=== PATIENT | female | born 1970 | race Caucasian/White ===

== ENCOUNTER 2016-04-30 13:58 | Emergency (ER) | payer OTHER ==
[~2016-04-30] VITALS: Ht 182.9 cm; Wt 127.0 kg
[~2016-04-30 13:58] MED LIST: ESTR1TAB PO; LEVO150T7 PO; LORA10TA2 PO; MIRA3350 PO; MOTR200T44 PO; NORCOTAB PO; OMEP10CASR PO; OMEP40CA2 PO; PARO10SS PO; PARO20TA2 PO; PROA1AER IN; SING10TA32 PO; VITA200016 PO
[2016-04-30] MEDS ORDERED: RANI150T (14:21)
[2016-04-30] MEDS ORDERED: ASPIRIN 81 MG CHEW TABLET PO ONE (15:00)
[2016-04-30] MEDS ORDERED: PANTOPRAZOLE 40MG INJ (PROTONIX) (C9113) IV ONE (15:00)
[2016-04-30] MEDS ORDERED: MORPHINE 4 MG/ML 1ML SYRINGE IV PRN (15:00)
[2016-04-30 15:02] LABS: BASO % 0.4 % (0.0-1.0); EOS # 0.1 K/mm3 (0.0-0.50); EOS % 2.4 % (0.0-3.0); LARGE UNSTAINED CELL # 0.1 K/mm3 (0.0-0.4); LARGE UNSTAINED CELL % 2.3 % (0.0-4.0); LYMPH % 43.3 % (24.0-44.0); MEAN CORPUSCULAR HEMOGLOBIN 27.6 pg (27.0-33.0); MEAN CORPUSCULAR HGB CONC 32.3 g/dl (32.0-36.5); MEAN CORPUSCULAR VOLUME 85.3 fl (80.0-96.0); MONO # 0.2 K/mm3 (0.0-0.8); MONO % 4.9 % (0.0-5.0); NEUTROPHILS # 2.2 K/mm3 (1.8-7.7); NEUTROPHILS % 46.8 % (36.0-66.0); PLATELET COUNT, AUTOMATED 223 k/mm3 (150-450); RED CELL DISTRIBUTION WIDTH 13.5 % (11.5-14.5); WHITE BLOOD COUNT 4.7 K/mm3 (4.0-10.0)
[2016-04-30 15:09] LABS: ANION GAP 9 MEQ/L (8-16); BLOOD UREA NITROGEN 13 MG/DL (7-18); CALCIUM LEVEL 8.8 MG/DL (8.5-10.1); CARBON DIOXIDE LEVEL 28 MEQ/L (21-32); CHLORIDE LEVEL 107 MEQ/L (98-107); CREATININE FOR GFR 0.74 MG/DL (0.55-1.02); GLOMERULAR FILTRATION RATE > 60.0 (>58); GLUCOSE, FASTING 101 MG/DL (70-105); POTASSIUM SERUM 3.8 MEQ/L (3.5-5.1); SODIUM LEVEL 144 MEQ/L (136-145)
[2016-04-30] MEDS ORDERED: KETOROLAC 30 MG/ML VIAL (J1885) IV ONE (15:45)
[2016-04-30] MEDS ORDERED: IBUP600T26 PO (15:55)
[2016-04-30 16:04] VITALS: BP 121/67
--- NOTE | 2016-04-30 17:14 | REP ---
Chest x-ray: Two views: History: Chest pain. Findings: The lungs are well inflated and free of infiltrate. There is a stable and fairly densely calcified 1.5 cm granuloma in the left lung apex superimposed on the medial head of the clavicle on the left side on the frontal view and just in front of the upper thoracic spine on the lateral radiograph. It is unchanged from prior chest x-ray and is visible on chest CT study 01/2015. Pleural angles are sharp. EKG monitoring electrodes are noted. Pulmonary vasculature is not increased. No significant bony abnormality. Impression: No active disease. 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 Signed by Cesar Vásquez MD 04/30/2016 05:46 P
--- NOTE | 2016-05-01 20:15 | ECGEPIP ---
Stationary ECG Study [facility] - ED Test Date: 2016-04-30 Pat Name: MINA FLOWERS Department: Room: - Gender: F Admitted Attorneys: rn : 1970 Requested By: Darrin Baird Order Number: [id number] Reading MD: Ale Boyer Measurements Intervals [place] Rate: 76 P: 8 [place]: 158 QRS: 9 QRSD: 89 T: 25 QT: 402 QTc: 453 Interpretive Statements SINUS RHYTHM LOW QRS VOLTAGE IN PRECORDIAL LEADS DELAYED TR WAVE PROGRESSION PROLONGED QTC NO PRIOR ECG TO COMPARE TO Electronically Signed On 05-01-2016 20:15:18 EST by Ale Boyer
== END 2016-04-30 16:23 | disposition home or self-care (01) ==
LOC: M ED 14:56
DX: M94.0 Chondrocostal junction syndrome [Tietze] (principal); Z87.891 Personal history of nicotine dependence; Z79.899 Other long term (current) drug therapy

== ENCOUNTER → 2016-05-08 | Outpatient (REF) | payer OTHER ==
[~2016-05-08] MED LIST changes: +IBUP600T26 PO; +RANI150T
[2016-05-10 00:08] LABS: Lyme Disease IgG/IgM Antibodie <0.91 ISR (0.00-0.90); Lyme Disease IgM Ab Quantitati <0.80 index (0.00-0.79)
== END ==
LOC: M SFHCPLAZ 10:50
PROVIDERS: ATTEND Nurse Practitioner Adult Health
DX: R53.83 Other fatigue (principal); Z68.41 Body mass index [BMI] 40.0-44.9, adult; E78.1 Pure hyperglyceridemia; E03.9 Hypothyroidism, unspecified

== ENCOUNTER 2017-03-16 06:44 | Emergency (ER) | payer OTHER ==
[2017-03-16] MEDS: IPRATROPIUM 0.5MG/ALBUTEROL 2.5MG INH SOL UD 3ML (DUONEB)(J7620) NEB (07:46)
== END 2017-03-16 09:16 | disposition home or self-care (01) ==
LOC: M ED 06:44
DX: J20.5 Acute bronchitis due to respiratory syncytial virus (principal); E03.9 Hypothyroidism, unspecified; F17.200 Nicotine dependence, unspecified, uncomplicated
CPT/HCPCS: 71046

== ENCOUNTER → 2018-05-21 | Outpatient (REF) | payer OTHER ==
[~2018-05-21] MED LIST changes: +IBUP-1022 PO; -IBUP600T26 PO; +LORA-243 PO; -LORA10TA2 PO; -PARO20TA2 PO; +PARO20TA3 PO; -PROA1AER IN; +PROAAER10 IN; +PROAAER10 INH; +VITA100067 PO
[2018-05-21 12:02] LABS: HEMATOCRIT 40.3 % (36.0-47.0); HEMOGLOBIN 12.8 g/dl (12.0-15.5); MEAN CORPUSCULAR HEMOGLOBIN 27.8 pg (27.0-33.0); MEAN CORPUSCULAR HGB CONC 31.8 g/dl (32.0-36.5); MEAN CORPUSCULAR VOLUME 87.6 fl (80.0-96.0); PLATELET COUNT, AUTOMATED 222 10^3/uL (150-450); WHITE BLOOD COUNT 5.5 10^3/uL (4.0-10.0)
[2018-05-21 12:37] LABS: ALBUMIN 3.7 GM/DL (3.2-5.2); ALT/SGPT 24 U/L (12-78); BILIRUBIN,TOTAL 0.4 MG/DL (0.2-1.0); BLOOD UREA NITROGEN 12 MG/DL (7-18); CARBON DIOXIDE LEVEL 29 MEQ/L (21-32); CHLORIDE LEVEL 109 MEQ/L (98-107); CHOLESTEROL LEVEL 196 MG/DL (<200); CHOLESTEROL RISK RATIO 3.438 (<5); CREATININE FOR GFR 0.62 MG/DL (0.55-1.30); GLOMERULAR FILTRATION RATE > 60.0 (>58); GLUCOSE, FASTING 77 MG/DL (70-100); HDL CHOLESTEROL 57 MG/DL (>40); LDL CHOLESTEROL 114 MG/DL (<100); NON-HDL-C 139 MG/DL; POTASSIUM SERUM 4.5 MEQ/L (3.5-5.1); SODIUM LEVEL 143 MEQ/L (136-145); TOTAL 25(OH) VITAMIN D 36.3 NG/ML (30.0-100.0); TOTAL PROTEIN 6.7 GM/DL (6.4-8.2); TRIGLYCERIDES LEVEL 123 MG/DL (<150)
== END ==
LOC: M SFHCPLAZ 08:38
PROVIDERS: ATTEND Internal Medicine
DX: Z01.818 Encounter for other preprocedural examination (principal); E03.9 Hypothyroidism, unspecified; Z68.41 Body mass index [BMI] 40.0-44.9, adult; E55.9 Vitamin D deficiency, unspecified

== ENCOUNTER 2018-06-27 13:43 | Emergency (ER) | payer OTHER ==
[~2018-06-27] VITALS: Ht 182.9 cm; Wt 131.8 kg
[~2018-06-27 13:43] MED LIST changes: +HYDR-3715 PO; -NORCOTAB PO
[2018-06-27] MEDS ORDERED: ONDANSETRON 4MG/2ML VIAL (J2405) IV STA (13:55)
[2018-06-27] MEDS ORDERED: LORazepam 2 MG/ML VIAL (J2060) IV STA (14:09)
[2018-06-27 14:43] LABS: ABG BASE EXCESS -0.6 (-2.0-2.0); ABG HCO3 22.2 MEQ/L (22.0-26.0); ABG O2 SATURATION 94.4 % (95.0-99.0); ABG PARTIAL PRESSURE O2 67.8 mmHg (75.0-100.0); ABG STANDARD HCO3 23.9 MEQ/L (22.0-26.0); ABG TOTAL CO2 23.1 MEQ/L (22.0-29.0); ABG pH (ARTERIAL) 7.472 UNITS (7.350-7.450)
[2018-06-27 14:55] LABS: BASO % 0.2 % (0.0-1.0); EOS # 0.1 10^3/uL (0.0-0.50); EOS % 0.6 % (0.0-3.0); HEMATOCRIT 37.8 % (36.0-47.0); HEMOGLOBIN 12.5 g/dl (12.0-15.5); LYMPH # 2.6 10^3/uL (1.5-4.5); LYMPH % 31.5 % (24.0-44.0); MEAN CORPUSCULAR HEMOGLOBIN 28.8 pg (27.0-33.0); MEAN CORPUSCULAR HGB CONC 33.1 g/dl (32.0-36.5); MEAN CORPUSCULAR VOLUME 87.1 fl (80.0-96.0); MONO # 0.4 10^3/uL (0.0-0.8); MONO % 4.5 % (0.0-5.0); NEUTROPHILS # 5.1 10^3/uL (1.8-7.7); NEUTROPHILS % 62.8 % (36.0-66.0); PLATELET COUNT, AUTOMATED 216 10^3/uL (150-450); RED BLOOD COUNT 4.34 10^6/uL (4.00-5.40); WHITE BLOOD COUNT 8.2 10^3/uL (4.0-10.0)
[2018-06-27 15:08] LABS: BLOOD UREA NITROGEN 15 MG/DL (7-18); CALCIUM LEVEL 9.2 MG/DL (8.5-10.1); CARBON DIOXIDE LEVEL 24 MEQ/L (21-32); CHLORIDE LEVEL 108 MEQ/L (98-107); CREATININE FOR GFR 0.84 MG/DL (0.55-1.30); GLOMERULAR FILTRATION RATE > 60.0 (>58); GLUCOSE, FASTING 128 MG/DL (70-100); POTASSIUM SERUM 3.7 MEQ/L (3.5-5.1); SODIUM LEVEL 141 MEQ/L (136-145)
[2018-06-27] MEDS ORDERED: MECLIZINE 25 MG TABLET PO ONE (16:15)
[2018-06-27 17:41] VITALS: O2SAT 95
[2018-06-27] MEDS ORDERED: LORazepam 2 MG/ML VIAL (J2060) IV ONE (18:15)
--- NOTE | 2018-06-27 20:11 | REPVR ---
EXAM: MR Head Without Contrast EXAM DATE/TIME: 06/27/2018 5:54 PM CLINICAL HISTORY: 48 years old, female; Signs and symptoms; Malaise or fatigue; Patient HX: Anxiety; Additional info: R/O cerebellar CVA TECHNIQUE: Imaging protocol: MR of the head without contrast. COMPARISON: CT Head without contrast 06/27/2018 4:15 PM FINDINGS: No abnormal restriction of diffusion to indicate acute CVA. Minimal linear focus of vaguely increased diffusion signal, left frontal cortex on image 200 demonstrates no ADC map signal abnormality and no FLAIR or T2 signal abnormality is felt to be an artifact. No evidence of a posterior fossa acute infarct Midline structures and cerebellar tonsillar position appear normal. Ventricles, cisterns and sulci are symmetric and normal for age. No intracranial mass, midline shift or abnormal extra-axial fluid. No acute intracranial hemorrhage or hemosiderin deposition. No abnormal white matter signal on FLAIR and T2 sequences. Optic chiasm and pituitary infundibulum appear normal. Normal vascular flow voids in major intracranial arteries and dural venous sinuses. Paranasal sinuses are clear. Mastoid air cells are normally aerated. Optic globes and orbits are unremarkable. IMPRESSION: Unremarkable noncontrast MRI of the brain. Electronically signed by: Calos Rodriguez On 06/27/2018 20:11:07 PM
--- NOTE | 2018-06-27 21:21 | ECGEPIP ---
Stationary ECG Study [facility] - ED Test Date: 2018-06-27 Pat Name: MINA FLOWERS Department: Room: - Gender: F Director Of Sleep: MAR : 1970 Requested By: RAQUEL Daniel Order Number: [id number] Reading MD: Debbie Parada Measurements Intervals [place] Rate: 78 P: 30 MO: 140 QRS: 0 QRSD: 98 T: 7 QT: 410 QTc: 470 Interpretive Statements SINUS RHYTHM PROLONGED QTC SIMILAR 04/30/16 Electronically Signed On 06-27-2018 21:20:48 EDT by Debbie Parada
[2018-06-27 21:46] VITALS: BP 122/69
--- NOTE | 2018-06-28 07:43 | REP ---
CT BRAIN WITHOUT IV CONTRAST: CT brain performed without IV contrast. Pereira-white differentiation is well maintained. The lateral ventricles are normal in size and position with no midline shift or mass effect. There is no acute intracranial hemorrhage. There is no extra-axial fluid collection. Bone window examination is unremarkable. IMPRESSION: Negative noncontrast CT of the brain. Electronically Signed by Rj Pereira MD 06/28/2018 05:21 P
== END 2018-06-27 21:48 | disposition home or self-care (01) ==
LOC: M ED 13:43 → EDBD 13:43 → M ED 21:48
DX: F16.10 Hallucinogen abuse, uncomplicated (principal); J45.909 Unspecified asthma, uncomplicated; F33.9 Major depressive disorder, recurrent, unspecified; K21.9 Gastro-esophageal reflux disease without esophagitis; E07.9 Disorder of thyroid, unspecified; Z79.899 Other long term (current) drug therapy; Z79.890 Hormone replacement therapy; F17.210 Nicotine dependence, cigarettes, uncomplicated
CPT/HCPCS: 36600; 70450; 70551; 80048; 82803; 85025; 93005; 93041; 96374; 96375; 96376; 99285; J2060; J2405

== ENCOUNTER → 2019-05-03 | Outpatient (REF) | payer OTHER ==
[~2019-05-03] MED LIST changes: -OMEP40CA2 PO; +OMEP40CA97 PO
[2019-05-03 13:35] LABS: INFLUENZA A AMPLIFICATION NEGATIVE (NEGATIVE); INFLUENZA B AMPLIFICATION NEGATIVE (NEGATIVE)
== END ==
LOC: M LAB REF 12:34
PROVIDERS: ATTEND Physician Assistant Medical
DX: J11.1 Influenza due to unidentified influenza virus with other respiratory manifestations (principal)

== ENCOUNTER 2019-07-08 07:24 | Emergency (ER) | payer OTHER ==
[~2019-07-08] VITALS: Ht 180.3 cm; Wt 131.9 kg
[2019-07-08] MEDS ORDERED: LORA-674 PO (07:36)
[2019-07-08] MEDS ORDERED: ULTR50TA8 PO (08:44)
[2019-07-08] MEDS ORDERED: traMADol 50 MG TAB PO ONE (08:45)
[2019-07-08] MEDS ORDERED: ACETAMINOPHEN TAB 650MG DOSE (2X325MG) PO ONE (08:45)
[2019-07-08 08:49] VITALS: BP 140/87
--- NOTE | 2019-07-08 10:09 | REP ---
RIGHT FOOT SERIES: FOUR VIEWS. HISTORY: Right great toe injury. No comparison study. FINDINGS: Four views of the right foot demonstrate a chip fracture at the distal phalanx of the great toe along its lateral aspect at the IP joint. Overall mineralization pattern is normal. No other fractures seen. There is an os navicular and an os peroneum. There is prominent plantar and Achilles calcaneal spurring. IMPRESSION: Nondisplaced avulsion chip fracture distal phalanx great toe at the IP joint along its lateral side. Electronically Signed by Cesar Vásquez MD 07/08/2019 11:25 A
== END 2019-07-08 08:58 | disposition home or self-care (01) ==
LOC: M ED 07:24

== ENCOUNTER → 2020-09-26 | Outpatient (CLI) | payer OTHER ==
[~2020-09-26] MED LIST changes: +ISOVUE-300 61% 50ML VIAL As Ordered ONE; +LORA-674 PO; +OMEP40CA4 PO; -OMEP40CA97 PO; +PROHANCE 279.3MG/ML 5ML VIAL As Ordered ONE; +ULTR50TA8 PO
--- NOTE | 2020-09-26 16:49 | REP ---
INDICATION: SPRAIN OF LEFT WRIST. COMPARISON: Multiple prior radiographs, most recently 07/24/2020. TECHNIQUE: Multiple sequences obtained in the axial, coronal and sagittal planes. Post arthrogram sequences obtained in the axial, coronal and sagittal planes with T1 fat saturation. FINDINGS: Triangular fibrocartilage complex:No evidence of tear.There appears to be a tear of the volar radioulnar ligament, with resultant dorsal subluxation of the distal ulna. Scapholunate and lunatotriquetral ligaments: Intact. Flexor and extensor tendons: Intact. No tenosynovitis. Carpal tunnel region: No significant abnormality. No abnormal signal in median nerve. No ganglion cyst is seen. Joint fluid: There is mild scattered fluid throughout the intercarpal joints. Distal radioulnar joint: No significant fluid present. Bone marrow:There is ulnar minus variance, the ulna is approximately 7 mm shorter than the radius. 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 Multiple subcentimeter cysts are seen throughout the fractured lunate bone. There is no acute bone marrow edema or occult fracture. There is evidence of prior placement of several metallic screws in the distal radius. IMPRESSION: There appears to be a tear of the volar radioulnar ligament with resultant dorsal subluxation of the distal ulna. Ulnar minus variance. 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 No acute fracture is visualized. <Electronically signed by Rj Pereira > 09/26/20 0716
--- NOTE | 2020-09-26 17:17 | REP ---
INDICATION: SPRAIN OF LEFT WRIST. COMPARISON: None. TECHNIQUE: The procedure was performed under the direct supervision of Dr. Pereira. The images were reviewed with Dr. Pereira. The benefits and risks including but not limited to pain infection bleeding and anaphylaxis were explained to the patient and informed consent was obtained. The left radioscaphoid joint space was localized using fluoroscopic guidance. The skin was prepped and draped in a sterile fashion. 1% lidocaine was used as a local anesthetic. Using fluoroscopic guidance a 25 gauge needle was inserted and advanced into the joint. 3 cc of a solution containing 5 cc of Isovue-300 and 5 cc of a solution containing 20 cc of sterile saline and 0.15 cc of ProHance was injected into the joint. Images it obtained during injection show filling of the distal carpal joints. There is no contrast seen in the distal radioulnar joint. The triangular fibrocartilage complex appears intact. The needle was removed and the patient was taken to MRI for postprocedural imaging. The patient tolerated the procedure well and there were no immediate complications. 0.2 minutes of fluoroscopy time was utilized for this procedure. FINDINGS: None IMPRESSION: Fluoro guidance for left wrist MRI arthrogram injection. <Electronically signed by Epi Valentino > 09/26/20 [id number] <Electronically signed by Rj Pereira > 09/26/20 [id number]
== END ==
LOC: M RADPRO 07:37
PROVIDERS: ATTEND Physician Assistant
DX: R93.7 Abnormal findings on diagnostic imaging of other parts of musculoskeletal system (principal); S63.502D Unspecified sprain of left wrist, subsequent encounter
CPT/HCPCS: 25246; 73223; 77002; A9576; Q9967

== ENCOUNTER → 2020-10-12 | Outpatient (CLI) | payer OTHER ==
[~2020-10-12] MED LIST changes: -ISOVUE-300 61% 50ML VIAL As Ordered ONE; -PROHANCE 279.3MG/ML 5ML VIAL As Ordered ONE
[2020-10-12 14:14] LABS: ALBUMIN 3.4 GM/DL (3.2-5.2); ALT/SGPT 24 U/L (12-78); BILIRUBIN,TOTAL 0.2 MG/DL (0.2-1.0); BLOOD UREA NITROGEN 10 MG/DL (7-18); CALCIUM LEVEL 9.8 MG/DL (8.5-10.1); CARBON DIOXIDE LEVEL 28 MEQ/L (21-32); CHLORIDE LEVEL 109 MEQ/L (98-107); CHOLESTEROL LEVEL 214 MG/DL (<200); CHOLESTEROL RISK RATIO 4.196 (<5); CREATININE FOR GFR 0.69 MG/DL (0.55-1.30); GLOMERULAR FILTRATION RATE > 60.0 (>58); GLUCOSE, FASTING 79 MG/DL (70-100); HDL CHOLESTEROL 51 MG/DL (>40); LDL CHOLESTEROL 124 MG/DL (<100); NON-HDL-C 163 MG/DL; POTASSIUM SERUM 4.8 MEQ/L (3.5-5.1); SODIUM LEVEL 140 MEQ/L (136-145); TOTAL 25(OH) VITAMIN D 36.9 NG/ML (30.0-100.0); TOTAL PROTEIN 6.7 GM/DL (6.4-8.2); TRIGLYCERIDES LEVEL 194 MG/DL (<150)
[2020-10-12 14:50] LABS: HEMOGLOBIN A1c 5.7 %
== END ==
LOC: M PLALAB 11:35
PROVIDERS: ATTEND Nurse Practitioner Adult Health
DX: E66.9 Obesity, unspecified (principal); Z68.41 Body mass index [BMI] 40.0-44.9, adult

== ENCOUNTER → 2021-04-22 | Outpatient (REF) | payer OTHER | LOC: M SFHCPLAZ 12:57 | PROVIDERS: ATTEND Physician Assistant | DX: R09.89 Other specified symptoms and signs involving the circulatory and respiratory systems (principal) ==

== ENCOUNTER 2021-12-15 11:02 | Emergency (ER) | payer OTHER ==
[~2021-12-15] VITALS: Ht 182.9 cm; Wt 123.0 kg
[2021-12-15] MEDS ORDERED: LEVO137T2 (11:32)
[2021-12-15] MEDS ORDERED: ERGO500029 (11:32)
[2021-12-15] MEDS ORDERED: BENA25CA4 PO (11:32)
[2021-12-15] MEDS ORDERED: ASHW300C2 PO (11:35)
[2021-12-15] MEDS ORDERED: BIOT1CAP2 PO (11:35)
[2021-12-15 12:03] LABS: BASO % 0.4 % (0.0-1.0); EOS # 0.4 10^3/uL (0.0-0.5); EOS % 4.5 % (0.0-3.0); HEMATOCRIT 41.1 % (36.0-47.0); HEMOGLOBIN 13.4 g/dl (12.0-15.5); LYMPH % 39.2 % (24.0-44.0); MEAN CORPUSCULAR HEMOGLOBIN 29.5 pg (27.0-33.0); MEAN CORPUSCULAR HGB CONC 32.6 g/dl (32.0-36.5); MEAN CORPUSCULAR VOLUME 90.3 fl (80.0-96.0); MONO # 0.5 10^3/uL (0.0-0.8); MONO % 6.2 % (2.0-8.0); NEUTROPHILS # 3.8 10^3/uL (1.5-8.5); NEUTROPHILS % 49.4 % (36.0-66.0); PLATELET COUNT, AUTOMATED 272 10^3/uL (150-450); RED BLOOD COUNT 4.55 10^6/uL (4.00-5.40); WHITE BLOOD COUNT 7.7 10^3/uL (4.0-10.0)
[2021-12-15 12:23] LABS: ERYTHROCYTE SEDIMENTATION RATE 11 mm/hr (0-20)
[2021-12-15] MEDS ORDERED: VANCOMYCIN HCL 2,000 MG in D5W 500 ML IV ONE (12:30)
[2021-12-15] MEDS ORDERED: diphenhydrAMINE CREAM 30GM TOP STA (12:33)
[2021-12-15] MEDS ORDERED: CETIRIZINE (ZyrTEC) 10 MG TAB PO ONE (12:35)
[2021-12-15] MEDS ORDERED: methylPREDNISolone 125MG 2ML VIAL IV ONE (12:35)
[2021-12-15] MEDS ORDERED: FAMOTIDINE 20MG/2ML VIAL IVP ONE (12:35)
[2021-12-15] MEDS ORDERED: NS 1,000 ML IV ONE (12:35)
[2021-12-15 12:41] LABS: BLOOD UREA NITROGEN 11 MG/DL (7-18); C REACTIVE PROTEIN QUANTITATIV 0.58 MG/DL (0.00-0.30); CALCIUM LEVEL 9.8 MG/DL (8.5-10.1); CARBON DIOXIDE LEVEL 28 MEQ/L (21-32); CHLORIDE LEVEL 109 MEQ/L (98-107); CREATININE FOR GFR 0.71 MG/DL (0.55-1.30); GLOMERULAR FILTRATION RATE > 60.0 (>58); GLUCOSE, FASTING 87 MG/DL (70-100); POTASSIUM SERUM 4.5 MEQ/L (3.5-5.1); SODIUM LEVEL 140 MEQ/L (136-145)
[2021-12-15] MEDS ORDERED: VANCOMYCIN HCL 1,000 MG, VIAL MATE ADAPTER 1 EACH in NS 250 ML IV ONE ×2 (13:00→14:00)
[2021-12-15] MEDS ORDERED: BOOSTRIX/ADACEL VACCINE (DIPHTH/PERTUSS/ACELL/TETANUS) 0.5ML SYR IM ONE (14:00)
[2021-12-15] MEDS ORDERED: BACT800T5 PO (15:14)
[2021-12-15] MEDS ORDERED: MEDR4PAK PO (15:15)
[2021-12-15 15:30] VITALS: BP 120/79
== END 2021-12-15 16:05 | disposition home or self-care (01) ==
LOC: M ED 11:02
DX: L03.113 Cellulitis of right upper limb (principal); T63.441A Toxic effect of venom of bees, accidental (unintentional), initial encounter; L29.9 Pruritus, unspecified; E03.9 Hypothyroidism, unspecified; K21.9 Gastro-esophageal reflux disease without esophagitis; J45.909 Unspecified asthma, uncomplicated; F17.200 Nicotine dependence, unspecified, uncomplicated; Z79.890 Hormone replacement therapy; Z79.899 Other long term (current) drug therapy; Z79.51 Long term (current) use of inhaled steroids
CPT/HCPCS: 80048; 85025; 85652; 86140; 87040; 90471; 90715; 93971; 96361; 96365; 96366; 96375; 99283; J2930; J3370

== ENCOUNTER → 2021-12-24 | Outpatient (CLI) | payer OTHER ==
[~2021-12-24] MED LIST changes: +ASHW300C2 PO; +BACT800T5 PO; +BENA25CA4 PO; +BIOT1CAP2 PO; +ERGO500029; +LEVO137T2; +MEDR4PAK PO
[2021-12-24 16:37] LABS: ALBUMIN 3.5 GM/DL (3.2-5.2); ALT/SGPT 22 U/L (12-78); BILIRUBIN,TOTAL 0.1 MG/DL (0.2-1.0); BLOOD UREA NITROGEN 10 MG/DL (7-18); CALCIUM LEVEL 9.5 MG/DL (8.5-10.1); CARBON DIOXIDE LEVEL 29 MEQ/L (21-32); CHLORIDE LEVEL 107 MEQ/L (98-107); CHOLESTEROL LEVEL 203 MG/DL (<200); CREATININE FOR GFR 0.75 MG/DL (0.55-1.30); GLOMERULAR FILTRATION RATE > 60.0 (>58); GLUCOSE, FASTING 83 MG/DL (70-100); HDL CHOLESTEROL 50 MG/DL (>40); LDL CHOLESTEROL 106 MG/DL (<100); NON-HDL-C 153 MG/DL; POTASSIUM SERUM 4.8 MEQ/L (3.5-5.1); SODIUM LEVEL 139 MEQ/L (136-145); TOTAL PROTEIN 6.3 GM/DL (6.4-8.2); TRIGLYCERIDES LEVEL 237 MG/DL (<150)
[2021-12-24 16:53] LABS: HEMOGLOBIN A1c 5.7 %
[2021-12-24 17:17] LABS: TOTAL 25(OH) VITAMIN D 39.2 NG/ML (30.0-100.0)
== END ==
LOC: M PLALAB 14:09
PROVIDERS: ATTEND Nurse Practitioner Adult Health
DX: E78.1 Pure hyperglyceridemia (principal)

== ENCOUNTER → 2022-02-28 | Outpatient (CLI) | payer OTHER | LOC: M PLAIMG 08:59 → M PLARAD 08:59 | PROVIDERS: ATTEND Physician Assistant | DX: M25.551 Pain in right hip (principal) ==

== ENCOUNTER → 2022-07-16 | Outpatient (REF) | payer OTHER ==
[~2022-07-16] MED LIST changes: +MONT-5 PO; -SING10TA32 PO
== END ==
LOC: M SFHCPLAZ 17:59
PROVIDERS: ATTEND Nurse Practitioner Adult Health
DX: R10.2 Pelvic and perineal pain (principal)

== ENCOUNTER → 2022-08-22 | Outpatient (REF) | payer OTHER ==
[2022-08-22 13:59] LABS: AMORPHOUS SEDIMENT MODERATE (NEGATIVE); APPEARANCE, URINE TURBID (CLEAR); BACTERIA, URINE AUTO 2+ (NEGATIVE); BILIRUBIN, URINE AUTO NEGATIVE (NEGATIVE); BLOOD, URINE BLOOD 3+ (NEGATIVE); COLOR, URINE YELLOW (YELLOW); GLUCOSE, URINE (UA) AUTO NEGATIVE (NEGATIVE); KETONE, URINE AUTO NEGATIVE (NEGATIVE); LEUKOCYTE ESTERASE, URINE AUTO 2+ (NEGATIVE); MUCUS, URINE LARGE (NEGATIVE); NITRITE, URINE AUTO POSITIVE (NEGATIVE); PROTEIN, URINE AUTO 1+ mg/dL (NEGATIVE); RBC, URINE AUTO 0 /HPF (0-3); SPECIFIC GRAVITY URINE AUTO 1.026 (1.002-1.035); SQUAMOUS EPITHELIAL CELL UR AU 0 /HPF (0-6); UROBILINOGEN, URINE AUTO 0.2 mg/dL (0.0-2.0); WBC, URINE AUTO 21 /HPF (0-3)
== END ==
LOC: M SFHCPLAZ 12:52
PROVIDERS: ATTEND Nurse Practitioner Family
DX: N39.0 Urinary tract infection, site not specified (principal)

== ENCOUNTER → 2022-09-17 | Outpatient (CLI) | payer OTHER ==
[2022-09-17 14:38] LABS: ALBUMIN 3.8 G/DL (3.2-5.2); ALKALINE PHOSPHATASE 97 U/L (46-116); ALT/SGPT 20 U/L (7.0-40); AST/SGOT 12 U/L (<34); BILIRUBIN,TOTAL 0.5 MG/DL (0.3-1.2); BLOOD UREA NITROGEN 12 MG/DL (9-23); CARBON DIOXIDE LEVEL 27 MMOL/L (20-31); CHLORIDE LEVEL 108 MMOL/L (98-107); CREATININE FOR GFR 0.76 MG/DL (0.55-1.30); GLOMERULAR FILTRATION RATE > 60.0 (>51); GLUCOSE, FASTING 89 MG/DL (60-100); POTASSIUM SERUM 4.5 MMOL/L (3.5-5.1); SODIUM LEVEL 142 MMOL/L (136-145); TOTAL PROTEIN 6.3 G/DL (5.7-8.2)
== END ==
LOC: M PLALAB 09:16
PROVIDERS: ATTEND Nurse Practitioner Adult Health
DX: E78.1 Pure hyperglyceridemia (principal); E03.9 Hypothyroidism, unspecified

== ENCOUNTER → 2022-10-29 | Outpatient (CLI) | payer OTHER ==
[~2022-10-29] MED LIST changes: +LORA-1041 PO; -LORA-674 PO
== END ==
LOC: M PLAIMG 10:08
PROVIDERS: ATTEND Nurse Practitioner Family
DX: J40 Bronchitis, not specified as acute or chronic (principal)

== ENCOUNTER → 2023-02-24 | Outpatient (REF) | payer OTHER ==
[~2023-02-24] MED LIST changes: +ALBU6.7H6 INH; +BENZ200C70 PO; +CYCL-707 PO; +DICL100G10 TOP; -ERGO500029; +ERGO500029 PO; -LEVO137T2; +LEVO137T2 PO; +LIDO1PAD TOP; +OMEP40CA5 PO; +OXYB-54 PO; +VITA1TAB61 PO
== END ==
LOC: M SFHCWAGY 13:28
PROVIDERS: ATTEND Nurse Practitioner Family
DX: L90.0 Lichen sclerosus et atrophicus (principal)

== ENCOUNTER → 2023-03-17 | Outpatient (CLI) | payer OTHER | LOC: M RAD 08:57 | PROVIDERS: ATTEND Nurse Practitioner Adult Health | DX: M79.662 Pain in left lower leg (principal) ==

== ENCOUNTER → 2023-03-23 | Outpatient (CLI) | payer OTHER ==
[2023-03-23 11:04] LABS: HEMATOCRIT 39.7 % (36.0-47.0); HEMOGLOBIN 12.8 g/dl (12.0-15.5); MEAN CORPUSCULAR HEMOGLOBIN 29.3 pg (27.0-33.0); MEAN CORPUSCULAR HGB CONC 32.2 g/dl (32.0-36.5); MEAN CORPUSCULAR VOLUME 90.8 fl (80.0-96.0); PLATELET COUNT, AUTOMATED 230 10^3/uL (150-450); RED BLOOD COUNT 4.37 10^6/uL (4.00-5.40); WHITE BLOOD COUNT 7.1 10^3/uL (4.0-10.0)
[2023-03-23 11:22] LABS: HEMOGLOBIN A1c 5.6 % (4.0-6.0)
[2023-03-23 11:30] LABS: ALBUMIN 3.6 G/DL (3.2-5.2); ALKALINE PHOSPHATASE 98 U/L (46-116); ALT/SGPT 17 U/L (7.0-40); AST/SGOT 12 U/L (<34); BILIRUBIN,TOTAL 0.4 MG/DL (0.3-1.2); BLOOD UREA NITROGEN 11 MG/DL (9-23); CALCIUM LEVEL 10.1 MG/DL (8.5-10.1); CARBON DIOXIDE LEVEL 30 MMOL/L (20-31); CHLORIDE LEVEL 108 MMOL/L (98-107); CHOLESTEROL LEVEL 171 MG/DL (<200); CHOLESTEROL RISK RATIO 3.23 (<5); CREATININE FOR GFR 0.73 MG/DL (0.55-1.30); GLOMERULAR FILTRATION RATE > 60.0 (>51); GLUCOSE, FASTING 75 MG/DL (60-100); HDL CHOLESTEROL 52.8 MG/DL (>40); LDL CHOLESTEROL 95.6 MG/DL (<100); NON-HDL-C 118.2 MG/DL; POTASSIUM SERUM 4.7 MMOL/L (3.5-5.1); SODIUM LEVEL 139 MMOL/L (136-145); TOTAL PROTEIN 6.5 G/DL (5.7-8.2); TRIGLYCERIDES LEVEL 113 MG/DL (<150)
[2023-03-23 11:31] LABS: FERRITIN 18.6 NG/ML (7.3-270.7)
[2023-03-23 11:32] LABS: TOTAL 25(OH) VITAMIN D 63.4 NG/ML (20.0-100.0)
[2023-03-23 11:33] LABS: THYROID STIMULATING HORMONE 2.785 uIU/ML (0.55-4.78)
== END ==
LOC: M PLALAB 08:33
PROVIDERS: ATTEND Nurse Practitioner Adult Health
DX: Z00.00 Encounter for general adult medical examination without abnormal findings (principal); Z68.41 Body mass index [BMI] 40.0-44.9, adult; E03.9 Hypothyroidism, unspecified; E55.9 Vitamin D deficiency, unspecified; E78.1 Pure hyperglyceridemia

== ENCOUNTER → 2023-03-31 | Outpatient (REF) | payer OTHER | LOC: M SFHCPLAZ 10:23 | PROVIDERS: ATTEND Nurse Practitioner Adult Health | DX: R68.89 Other general symptoms and signs (principal) ==

== ENCOUNTER 2023-07-24 09:38 | Day surgery (SDC) | payer OTHER ==
[~2023-07-24] VITALS: Ht 182.9 cm; Wt 119.8 kg
[~2023-07-24 09:38] MED LIST changes: +ALBU8.5H INH; +FLUTISP; +LIDO1ADH10 TOP; +MAG100TA PO; +POLY17PO18 PO
[2023-07-24] MEDS ORDERED: LIDOCAINE 2% 100MG/5ML SDV (FOR ANES.) As Ordered ONE (10:08)
[2023-07-24] MEDS ORDERED: propofoL 200 MG/20 ML VIAL As Ordered ONE (10:08)
[2023-07-24] MEDS: NS 1,000 ML IV ONE (10:24)
[2023-07-24] MEDS ORDERED: fentaNYL 100 MCG/2 ML INJECTION As Ordered ONE (10:49)
[2023-07-24 12:00] VITALS: BP 122/78; TEMP 97.5; O2SAT 99
== END 2023-07-24 12:44 | disposition home or self-care (01) ==
LOC: M OPP 09:38
PROVIDERS: ATTEND Internal Medicine Gastroenterology
DX: Z12.11 Encounter for screening for malignant neoplasm of colon (principal); R12 Heartburn; E03.9 Hypothyroidism, unspecified; Z79.1 Long term (current) use of non-steroidal anti-inflammatories (NSAID); Z79.51 Long term (current) use of inhaled steroids; Z79.52 Long term (current) use of systemic steroids; Z79.890 Hormone replacement therapy; Z79.899 Other long term (current) drug therapy; Z87.891 Personal history of nicotine dependence; Z91.048 Other nonmedicinal substance allergy status
CPT/HCPCS: 43235; 45378; J3010

== ENCOUNTER → 2023-08-24 | Outpatient (CLI) | payer OTHER ==
[~2023-08-24] MED LIST changes: +ALEV220T22 PO; +ASHW500C PO; +B-12100010 PO; +CLOB5CR VG; +LIDO1ADH52 TOP
[2023-08-24 13:27] LABS: BASO % 0.5 % (0.0-1.0); EOS # 0.3 10^3/uL (0.0-0.5); EOS % 3.2 % (0.0-3.0); HEMATOCRIT 41.2 % (36.0-47.0); HEMOGLOBIN 13.4 g/dl (12.0-15.5); LYMPH # 3.1 10^3/uL (1.5-5.0); LYMPH % 40.2 % (24.0-44.0); MEAN CORPUSCULAR HEMOGLOBIN 29.4 pg (27.0-33.0); MEAN CORPUSCULAR HGB CONC 32.5 g/dl (32.0-36.5); MEAN CORPUSCULAR VOLUME 90.4 fl (80.0-96.0); MONO # 0.5 10^3/uL (0.0-0.8); MONO % 6.4 % (2.0-8.0); NEUTROPHILS # 3.8 10^3/uL (1.5-8.5); NEUTROPHILS % 49.3 % (36.0-66.0); PLATELET COUNT, AUTOMATED 221 10^3/uL (150-450); RED BLOOD COUNT 4.56 10^6/uL (4.00-5.40); WHITE BLOOD COUNT 7.8 10^3/uL (4.0-10.0)
[2023-08-24 13:50] LABS: ALBUMIN 3.9 G/DL (3.2-5.2); ALKALINE PHOSPHATASE 112 U/L (46-116); ALT/SGPT 22 U/L (7.0-40); AST/SGOT 15 U/L (<34); BILIRUBIN,TOTAL 0.3 MG/DL (0.3-1.2); BLOOD UREA NITROGEN 10 MG/DL (9-23); CALCIUM LEVEL 10.3 MG/DL (8.5-10.1); CARBON DIOXIDE LEVEL 29 MMOL/L (20-31); CHLORIDE LEVEL 109 MMOL/L (98-107); CREATININE FOR GFR 0.71 MG/DL (0.55-1.30); GLOMERULAR FILTRATION RATE > 60.0 (>51); GLUCOSE, FASTING 80 MG/DL (60-100); POTASSIUM SERUM 4.6 MMOL/L (3.5-5.1); SODIUM LEVEL 139 MMOL/L (136-145); TOTAL PROTEIN 6.4 G/DL (5.7-8.2)
[2023-08-24 13:51] LABS: FERRITIN 19.2 NG/ML (7.3-270.7); THYROID STIMULATING HORMONE 5.261 uIU/ML (0.55-4.78)
[2023-08-24 13:52] LABS: FREE T4 1.24 NG/DL (0.89-1.76)
== END ==
LOC: M PLALAB 11:44
PROVIDERS: ATTEND Family Medicine
DX: J45.20 Mild intermittent asthma, uncomplicated (principal)

== ENCOUNTER 2023-09-01 06:01 | Day surgery (SDC) | payer OTHER ==
[~2023-09-01] VITALS: Ht 182.9 cm; Wt 122.3 kg
[2023-09-01 06:34] LABS: HEMATOCRIT 40.2 % (36.0-47.0); MEAN CORPUSCULAR HEMOGLOBIN 29.5 pg (27.0-33.0); MEAN CORPUSCULAR HGB CONC 32.3 g/dl (32.0-36.5); MEAN CORPUSCULAR VOLUME 91.2 fl (80.0-96.0); PLATELET COUNT, AUTOMATED 211 10^3/uL (150-450); RED BLOOD COUNT 4.41 10^6/uL (4.00-5.40); WHITE BLOOD COUNT 5.9 10^3/uL (4.0-10.0)
[2023-09-01] MEDS ORDERED: LR 1,000 ML IV SCH ×3 (06:40→08:50)
[2023-09-01] MEDS ORDERED: MIDAZOLAM INJ 2MG/2ML VIAL As Ordered ONE (06:52)
[2023-09-01] MEDS ORDERED: fentaNYL 100 MCG/2 ML INJECTION As Ordered ONE (06:52)
[2023-09-01] MEDS ORDERED: LIDOCAINE 2% 100MG/5ML SDV (FOR ANES.) As Ordered ONE (06:53)
[2023-09-01] MEDS ORDERED: ACETAMINOPHEN 1000MG 100ML IV BAG As Ordered ONE (06:53)
[2023-09-01] MEDS ORDERED: ROCURONIUM BROMIDE 50MG/5ML VIAL As Ordered ONE (06:53)
[2023-09-01] MEDS ORDERED: propofoL 200 MG/20 ML VIAL As Ordered ONE (06:53)
[2023-09-01] MEDS ORDERED: ceFAZolin SOD 2 GM in IV 1 EA IV ONE (07:10)
[2023-09-01] MEDS ORDERED: ceFAZolin SOD 1 GM in D5W MINI-BAG PLUS 50 ML IV ONE (07:10)
[2023-09-01] MEDS ORDERED: SUCCINYLCHOLINE 100MG/5ML SYRINGE As Ordered ONE (07:41)
[2023-09-01] MEDS: ceFAZolin 2 GM/D5W 50 ML IV BAG As Ordered ONE (07:45)
[2023-09-01] MEDS: ceFAZolin 1GM VIAL As Ordered ONE (07:45)
[2023-09-01] MEDS ORDERED: ONDANSETRON 4MG 2ML VIAL As Ordered ONE (07:53)
[2023-09-01] MEDS ORDERED: SUGAMMADEX SODIUM 500 MG/5 ML VIAL (BRIDION) As Ordered ONE (07:53)
[2023-09-01] MEDS: VASOPRESSIN INJ 20UNITS/ML 1ML VIAL As Ordered ONE (08:10)
[2023-09-01] MEDS ORDERED: ONDANSETRON 4MG 2ML VIAL IV PRN (08:35)
[2023-09-01] MEDS ORDERED: HYDROMORPHONE HCL 0.5 MG/ 0.5 ML SYRINGE IV PRN (08:35)
[2023-09-01] MEDS ORDERED: fentaNYL 100 MCG/2 ML INJECTION IV PRN (08:35)
[2023-09-01] MEDS ORDERED: PERCOCET 5MG/325MG TAB PO PRN (08:50)
[2023-09-01] MEDS: oxyCODONE 5MG TAB PO PRN (09:18)
[2023-09-01 10:00] VITALS: BP 133/80; TEMP 97.3; O2SAT 100
== END 2023-09-01 10:18 | disposition home or self-care (01) ==
LOC: M SDC 06:01
PROVIDERS: ATTEND Specialist
DX: N81.10 Cystocele, unspecified (principal); N39.3 Stress incontinence (female) (male); F43.10 Post-traumatic stress disorder, unspecified; G47.30 Sleep apnea, unspecified; J30.1 Allergic rhinitis due to pollen; Z72.0 Tobacco use; Z91.048 Other nonmedicinal substance allergy status; Z79.899 Other long term (current) drug therapy
CPT/HCPCS: 36415; 57240; 57288; 85027; 86850; 86900; 86901; 88302; C1771; J0131; J0330; J0665; J0690; J1100; J2250; J2405; J2598; J3010

== ENCOUNTER 2023-09-06 21:18 | Emergency (ER) | payer OTHER ==
[~2023-09-06] VITALS: Ht 182.9 cm; Wt 122.1 kg
[2023-09-06 21:19] VITALS: TEMP 98
[2023-09-06 21:58] LABS: BASO % 0.4 % (0.0-1.0); EOS # 0.3 10^3/uL (0.0-0.5); EOS % 3.1 % (0.0-3.0); HEMATOCRIT 39.1 % (36.0-47.0); HEMOGLOBIN 12.9 g/dl (12.0-15.5); LYMPH # 3.6 10^3/uL (1.5-5.0); LYMPH % 36.3 % (24.0-44.0); MEAN CORPUSCULAR HEMOGLOBIN 29.7 pg (27.0-33.0); MEAN CORPUSCULAR VOLUME 90.1 fl (80.0-96.0); MONO # 0.6 10^3/uL (0.0-0.8); MONO % 5.7 % (2.0-8.0); NEUTROPHILS # 5.4 10^3/uL (1.5-8.5); NEUTROPHILS % 54.2 % (36.0-66.0); PLATELET COUNT, AUTOMATED 234 10^3/uL (150-450); RED BLOOD COUNT 4.34 10^6/uL (4.00-5.40); WHITE BLOOD COUNT 9.9 10^3/uL (4.0-10.0)
[2023-09-06 22:11] LABS: INR 0.88; PROTHROMBIN TIME 11.7 SECONDS (12.5-14.5)
[2023-09-06 22:23] LABS: CK-MB VALUE MASS < 1.0 NG/ML (<3.6); LIPASE 26 U/L (12-53)
[2023-09-06 22:24] LABS: ALBUMIN 3.5 G/DL (3.2-5.2); ALKALINE PHOSPHATASE 110 U/L (46-116); ALT/SGPT 14 U/L (7.0-40); AST/SGOT 11 U/L (<34); BILIRUBIN,DIRECT < 0.1 MG/DL (<0.4); BILIRUBIN,TOTAL 0.2 MG/DL (0.3-1.2); BLOOD UREA NITROGEN 15 MG/DL (9-23); CALCIUM LEVEL 9.9 MG/DL (8.5-10.1); CARBON DIOXIDE LEVEL 26 MMOL/L (20-31); CHLORIDE LEVEL 111 MMOL/L (98-107); CREATININE FOR GFR 0.96 MG/DL (0.55-1.30); GLOMERULAR FILTRATION RATE > 60.0 (>51); GLUCOSE, FASTING 119 MG/DL (60-100); POTASSIUM SERUM 4.4 MMOL/L (3.5-5.1); SODIUM LEVEL 142 MMOL/L (136-145)
[2023-09-06 22:26] LABS: CPK CREATINE PHOSPHOKINASE 47 U/L (34-145); MB/CK RELATIVE INDEX 2.12 (< OR =4)
[2023-09-07] MEDS ORDERED: ISOVUE-370 76% 100ML VIAL As Ordered ONE (01:42)
[2023-09-07] MEDS: SIMETHICONE 80MG CHEW TAB PO STA (02:50)
[2023-09-07 03:38] VITALS: BP 127/69; O2SAT 100
== END 2023-09-07 03:50 | disposition home or self-care (01) ==
LOC: M ED 21:18
DX: R10.13 Epigastric pain (principal); K21.9 Gastro-esophageal reflux disease without esophagitis; E55.9 Vitamin D deficiency, unspecified; E03.9 Hypothyroidism, unspecified; F17.210 Nicotine dependence, cigarettes, uncomplicated; Z91.048 Other nonmedicinal substance allergy status; Z79.51 Long term (current) use of inhaled steroids; Z79.899 Other long term (current) drug therapy
CPT/HCPCS: 36415; 71045; 71275; 74177; 80048; 80076; 82550; 82553; 83690; 84484; 85025; 85610; 93005; 99284; Q9967

== ENCOUNTER → 2023-09-24 | Outpatient (CLI) | payer OTHER ==
[2023-09-24 09:39] LABS: ALBUMIN 3.5 G/DL (3.2-5.2); BLOOD UREA NITROGEN 12 MG/DL (9-23); CALCIUM LEVEL 10.2 MG/DL (8.5-10.1); CARBON DIOXIDE LEVEL 29 MMOL/L (20-31); CHLORIDE LEVEL 110 MMOL/L (98-107); CREATININE FOR GFR 0.89 MG/DL (0.55-1.30); GLOMERULAR FILTRATION RATE > 60.0 (>51); GLUCOSE, FASTING 88 MG/DL (60-100); MAGNESIUM LEVEL 2.1 MG/DL (1.8-2.4); PHOSPHORUS LEVEL 3.3 MG/DL (2.5-4.9); POTASSIUM SERUM 4.4 MMOL/L (3.5-5.1); PTH INTACT 462.9 PG/ML (18.5-88.0); SODIUM LEVEL 143 MMOL/L (136-145)
[2023-09-24 09:41] LABS: TOTAL 25(OH) VITAMIN D 39.9 NG/ML (20.0-100.0)
[2023-09-27 00:32] LABS: PROTEIN, TOTAL SO 6.2 g/dL (6.1-8.1)
== END ==
LOC: M LAB 08:04 → M PLALAB 08:04
PROVIDERS: ATTEND Family Medicine
DX: E83.52 Hypercalcemia (principal)

== ENCOUNTER → 2023-10-21 | Outpatient (CLI) | payer OTHER | LOC: M PLALAB 10:13 | PROVIDERS: ATTEND Nurse Practitioner Adult Health | DX: M54.50 Low back pain, unspecified (principal); M25.551 Pain in right hip; M25.552 Pain in left hip ==

== ENCOUNTER 2023-11-23 12:50 | Emergency (ER) | payer OTHER ==
[~2023-11-23] VITALS: Ht 182.9 cm; Wt 125.0 kg
[2023-11-23 13:46] LABS: VENOUS BASE EXCESS 0.2 (-2.0-2.0); VENOUS HCO3 23.6 MMOL/L (23.0-27.0); VENOUS O2 SATURATION 77.3 % (60.0-80.0); VENOUS PARTIAL PRESSURE CO2 34.7 mmHg (38.0-50.0); VENOUS PARTIAL PRESSURE O2 37.6 mmHg (30.0-50.0); VENOUS PH 7.451 UNITS (7.330-7.430); VENOUS STANDARD HCO3 24.2 MMOL/L; VENOUS TOTAL CO2 24.7 MMOL/L (24.0-28.0)
[2023-11-23 13:48] LABS: BASO % 0.4 % (0.0-1.0); EOS # 0.1 10^3/uL (0.0-0.5); EOS % 1.9 % (0.0-3.0); HEMATOCRIT 39.5 % (36.0-47.0); HEMOGLOBIN 13.1 g/dl (12.0-15.5); LYMPH # 0.6 10^3/uL (1.5-5.0); LYMPH % 11.5 % (24.0-44.0); MEAN CORPUSCULAR HEMOGLOBIN 29.8 pg (27.0-33.0); MEAN CORPUSCULAR HGB CONC 33.2 g/dl (32.0-36.5); MEAN CORPUSCULAR VOLUME 89.8 fl (80.0-96.0); MONO # 0.4 10^3/uL (0.0-0.8); NEUTROPHILS # 4.2 10^3/uL (1.5-8.5); NEUTROPHILS % 78.8 % (36.0-66.0); PLATELET COUNT, AUTOMATED 183 10^3/uL (150-450); WHITE BLOOD COUNT 5.3 10^3/uL (4.0-10.0)
[2023-11-23 14:12] LABS: ALBUMIN 3.9 G/DL (3.2-5.2); ALKALINE PHOSPHATASE 116 U/L (46-116); ALT/SGPT 17 U/L (7.0-40); AST/SGOT 12 U/L (<34); BILIRUBIN,DIRECT 0.1 MG/DL (<0.4); BILIRUBIN,TOTAL 0.4 MG/DL (0.3-1.2); BLOOD UREA NITROGEN 9 MG/DL (9-23); CALCIUM LEVEL 10.2 MG/DL (8.5-10.1); CARBON DIOXIDE LEVEL 26 MMOL/L (20-31); CHLORIDE LEVEL 109 MMOL/L (98-107); CPK CREATINE PHOSPHOKINASE 123 U/L (34-145); CREATININE FOR GFR 0.71 MG/DL (0.55-1.30); GLOMERULAR FILTRATION RATE > 60.0 (>51); GLUCOSE, FASTING 97 MG/DL (60-100); POTASSIUM SERUM 3.8 MMOL/L (3.5-5.1); SODIUM LEVEL 138 MMOL/L (136-145); TOTAL PROTEIN 6.7 G/DL (5.7-8.2)
[2023-11-23 14:13] LABS: CK-MB VALUE MASS < 1.0 NG/ML (<3.6); MB/CK RELATIVE INDEX 0.81 (< OR =4)
[2023-11-23 14:16] LABS: THYROID STIMULATING HORMONE 3.037 uIU/ML (0.55-4.78); THYROXINE (T4) 13.3 UG/DL (4.5-10.9)
[2023-11-23 15:05] LABS: RSV AMPLIFICATION NEGATIVE (NEGATIVE)
[2023-11-23] MEDS: ACETAMINOPHEN 325 MG TAB PO ONE (15:06)
[2023-11-23] MEDS: ONDANSETRON 4MG 2ML VIAL IV ONE (15:06)
[2023-11-23] MEDS ORDERED: NIRM1TAB14 PO (15:15)
[2023-11-23 16:55] VITALS: BP 134/64; TEMP 99.1; O2SAT 96
== END 2023-11-23 17:10 | disposition home or self-care (01) ==
LOC: M ED 12:50
DX: U07.1 COVID-19 (principal); J45.909 Unspecified asthma, uncomplicated; K21.9 Gastro-esophageal reflux disease without esophagitis; F32.A Depression, unspecified; F17.210 Nicotine dependence, cigarettes, uncomplicated; Z91.048 Other nonmedicinal substance allergy status; Z79.51 Long term (current) use of inhaled steroids; Z79.899 Other long term (current) drug therapy
CPT/HCPCS: 71045; 80048; 80076; 82550; 82553; 82803; 83605; 83880; 84436; 84443; 84484; 85025; 87040; 87631; 93005; 93041; 94760; 96374; 99285; J2405

== ENCOUNTER → 2023-12-04 | Outpatient (CLI) | payer OTHER ==
[~2023-12-04] MED LIST changes: +NIRM1TAB14 PO
[2023-12-04 10:31] LABS: CALCIUM LEVEL 10.6 MG/DL (8.5-10.1)
[2023-12-04 10:35] LABS: PTH INTACT 497.1 PG/ML (18.5-88.0)
== END ==
LOC: M LAB 09:19
PROVIDERS: ATTEND Otolaryngology
DX: E21.3 Hyperparathyroidism, unspecified (principal)

== ENCOUNTER → 2023-12-07 | Outpatient (REF) | payer OTHER ==
[2023-12-07 12:34] LABS: CALCIUM, URINE 13.5 MG/DL
[2023-12-07 13:05] LABS: CALCIUM, 24 HOUR URINE 259.8 MG/24HR (42-353)
== END ==
LOC: M LAB REF 09:54
PROVIDERS: ATTEND Otolaryngology
DX: E21.3 Hyperparathyroidism, unspecified (principal)

== ENCOUNTER → 2023-12-22 | Outpatient (CLI) | payer OTHER ==
[2023-12-22 10:54] LABS: ALBUMIN 3.5 G/DL (3.2-5.2); ALKALINE PHOSPHATASE 102 U/L (35-104); ALT/SGPT 15 U/L (7.0-40); AST/SGOT 8 U/L (<34); BILIRUBIN,TOTAL 0.2 MG/DL (0.3-1.2); BLOOD UREA NITROGEN 11 MG/DL (9-23); CALCIUM LEVEL 10.4 MG/DL (8.5-10.1); CARBON DIOXIDE LEVEL 27 MMOL/L (20-31); CHLORIDE LEVEL 111 MMOL/L (98-107); CREATININE FOR GFR 0.65 MG/DL (0.55-1.30); GLOMERULAR FILTRATION RATE > 60.0 (>51); GLUCOSE, FASTING 91 MG/DL (60-100); POTASSIUM SERUM 4.4 MMOL/L (3.5-5.1); SODIUM LEVEL 142 MMOL/L (136-145); TOTAL PROTEIN 6.2 G/DL (5.7-8.2)
[2023-12-22 10:55] LABS: RHEUMATOID FACTOR QUANT 5.5 IU/ML (<14)
[2023-12-23 16:18] LABS: ANGIOTENSIN 1 CONVERTING ENZYM 69 U/L (9-67)
== END ==
LOC: M WUC 08:18
PROVIDERS: ATTEND Nurse Practitioner Adult Health
DX: R53.83 Other fatigue (principal)

== ENCOUNTER → 2023-12-31 | Outpatient (REF) | payer OTHER | LOC: M SFHCWAGY 09:42 | PROVIDERS: ATTEND Specialist | DX: N39.0 Urinary tract infection, site not specified (principal) ==

== ENCOUNTER → 2024-01-04 | Outpatient (CLI) | payer OTHER | LOC: M PLAIMG 13:05 | PROVIDERS: ATTEND Nurse Practitioner Adult Health | DX: R93.89 Abnormal findings on diagnostic imaging of other specified body structures (principal) ==

== ENCOUNTER → 2024-02-03 | Outpatient (REF) | payer OTHER ==
[2024-02-03 11:09] LABS: FREE T4 1.22 NG/DL (0.89-1.76); THYROID STIMULATING HORMONE 4.081 uIU/ML (0.55-4.78)
== END ==
LOC: M SFHCPLAZ 09:49
PROVIDERS: ATTEND Nurse Practitioner Adult Health
DX: R53.83 Other fatigue (principal); E03.9 Hypothyroidism, unspecified

== ENCOUNTER → 2024-02-15 | Outpatient (CLI) | payer OTHER | LOC: M RAD 09:24 | PROVIDERS: ATTEND Nurse Practitioner Adult Health | DX: R79.89 Other specified abnormal findings of blood chemistry (principal) | CPT/HCPCS: 78070; 78803; A9500 ==

== ENCOUNTER → 2024-06-13 | Outpatient (REF) | payer OTHER | LOC: M SFHCPLAZ 09:56 | PROVIDERS: ATTEND Student in an Organized Health Care Education/Training Program | DX: J39.9 Disease of upper respiratory tract, unspecified (principal) ==

== ENCOUNTER → 2024-07-12 | Outpatient (CLI) | payer OTHER ==
[~2024-07-12] MED LIST changes: +BUSP10TA PO; +CLOT1CRE71; +DESL1TAB3 PO; +GABA-1172 PO; +VITA100093 PO
== END ==
LOC: M WHC 11:04
PROVIDERS: ATTEND Nurse Practitioner Family
DX: M81.0 Age-related osteoporosis without current pathological fracture (principal)

== ENCOUNTER 2024-09-17 14:27 | Emergency (ER) | payer OTHER ==
[~2024-09-17] VITALS: Ht 180.3 cm; Wt 123.6 kg
[~2024-09-17 14:27] MED LIST changes: +AMOX875T2 PO; +B-12100020 PO; +CALC1CAP31 PO; +CALC500T61 PO; -CLOT1CRE71; +CLOT1CRE71 TOP
[2024-09-17 14:33] VITALS: TEMP 97
[2024-09-17 15:05] LABS: BASO # 0.0 10^3/uL (0.0-0.2); BASO % 0.3 % (0.0-1.0); EOS # 0.2 10^3/uL (0.0-0.5); EOS % 3.4 % (0.0-3.0); LYMPH # 2.8 10^3/uL (1.5-5.0); LYMPH % 40.8 % (24.0-44.0); MONO # 0.4 10^3/uL (0.0-0.8); MONO % 6.2 % (2.0-8.0); NEUTROPHILS # 3.3 10^3/uL (1.5-8.5); NEUTROPHILS % 49.0 % (36.0-66.0); PLATELET COUNT, AUTOMATED 224 10^3/uL (150-450)
[2024-09-17 15:22] LABS: INR 0.85
[2024-09-17 15:25] LABS: CK-MB VALUE MASS 1.5 NG/ML (<3.6)
[2024-09-17 15:26] LABS: ALT/SGPT 33 U/L (7.0-40); AST/SGOT 18 U/L (<34); CALCIUM LEVEL 8.7 MG/DL (8.5-10.1); CARBON DIOXIDE LEVEL 24 MMOL/L (20-31); CHLORIDE LEVEL 112 MMOL/L (98-107); CPK CREATINE PHOSPHOKINASE 131 U/L (34-145); CREATININE FOR GFR 0.70 MG/DL (0.55-1.30); GLOMERULAR FILTRATION RATE > 90.0 (>51); MB/CK RELATIVE INDEX 1.14 (< OR =4); POTASSIUM SERUM 4.0 MMOL/L (3.5-5.1); SODIUM LEVEL 147 MMOL/L (136-145)
[2024-09-17 15:49] LABS: MAGNESIUM LEVEL 2.0 MG/DL (1.8-2.4)
[2024-09-17] MEDS: NS 500 ML IV ONE (15:49)
[2024-09-17 17:12] VITALS: O2SAT 98
[2024-09-17 17:15] VITALS: BP 122/68
== END 2024-09-17 17:34 | disposition home or self-care (01) ==
LOC: M ED 14:27
DX: I49.1 Atrial premature depolarization (principal); K21.9 Gastro-esophageal reflux disease without esophagitis; J45.909 Unspecified asthma, uncomplicated; E03.9 Hypothyroidism, unspecified; F32.A Depression, unspecified; F17.210 Nicotine dependence, cigarettes, uncomplicated; Z91.09 Other allergy status, other than to drugs and biological substances; Z79.51 Long term (current) use of inhaled steroids; Z79.2 Long term (current) use of antibiotics; Z79.899 Other long term (current) drug therapy

== ENCOUNTER → 2024-09-23 | Outpatient (CLI) | payer OTHER | LOC: M SLEEP 20:00 | PROVIDERS: ATTEND Physician Assistant | DX: G47.33 Obstructive sleep apnea (adult) (pediatric) (principal); R40.0 Somnolence ==

== ENCOUNTER → 2024-10-18 | Outpatient (REF) | payer OTHER ==
[~2024-10-18] MED LIST changes: -IBUP-1022 PO; +IBUP600T42 PO; -NIRM1TAB14 PO; +NIRM1TAB16 PO
[2024-10-18 19:29] LABS: BASO # 0.0 10^3/uL (0.0-0.2); BASO % 0.4 % (0.0-1.0); EOS # 0.2 10^3/uL (0.0-0.5); EOS % 2.8 % (0.0-3.0); LYMPH # 2.9 10^3/uL (1.5-5.0); LYMPH % 38.6 % (24.0-44.0); MONO # 0.5 10^3/uL (0.0-0.8); MONO % 6.2 % (2.0-8.0); NEUTROPHILS # 3.9 10^3/uL (1.5-8.5); NEUTROPHILS % 51.9 % (36.0-66.0); PLATELET COUNT, AUTOMATED 226 10^3/uL (150-450)
[2024-10-18 19:35] LABS: C REACTIVE PROTEIN QUANTITATIV < 0.50 MG/DL (<1.0)
[2024-10-18 19:36] LABS: ERYTHROCYTE SEDIMENTATION RATE 12 mm/hr (0-30)
[2024-10-18 19:37] LABS: ALT/SGPT 22 U/L (7.0-40); AST/SGOT 16 U/L (<34); CALCIUM LEVEL 9.5 MG/DL (8.5-10.1); CARBON DIOXIDE LEVEL 29 MMOL/L (20-31); CHLORIDE LEVEL 108 MMOL/L (98-107); CREATININE FOR GFR 0.70 MG/DL (0.55-1.30); GLOMERULAR FILTRATION RATE > 90.0 (>51); POTASSIUM SERUM 4.3 MMOL/L (3.5-5.1); SODIUM LEVEL 145 MMOL/L (136-145)
== END ==
LOC: M SFHCRHEU 13:16
PROVIDERS: ATTEND Internal Medicine Rheumatology
DX: I73.00 Raynaud's syndrome without gangrene (principal); R52 Pain, unspecified; R68.2 Dry mouth, unspecified; R53.83 Other fatigue

== ENCOUNTER → 2024-10-21 | Outpatient (CLI) | payer OTHER | LOC: M ADAMS 12:02 | PROVIDERS: ATTEND Physician Assistant | DX: I73.00 Raynaud's syndrome without gangrene (principal); R52 Pain, unspecified; R68.2 Dry mouth, unspecified; R53.83 Other fatigue; Z72.0 Tobacco use; M25.561 Pain in right knee ==

== ENCOUNTER → 2024-11-04 | Outpatient (CLI) | payer OTHER | LOC: M SLEEP 20:00 | PROVIDERS: ATTEND Physician Assistant | DX: G47.33 Obstructive sleep apnea (adult) (pediatric) (principal) ==

== ENCOUNTER → 2024-11-28 | Outpatient (CLI) | payer OTHER ==
[2024-11-28 13:08] LABS: BASO # 0.0 10^3/uL (0.0-0.2); BASO % 0.4 % (0.0-1.0); EOS # 0.2 10^3/uL (0.0-0.5); EOS % 2.7 % (0.0-3.0); LYMPH # 3.0 10^3/uL (1.5-5.0); LYMPH % 44.3 % (24.0-44.0); MONO # 0.4 10^3/uL (0.0-0.8); MONO % 5.8 % (2.0-8.0); NEUTROPHILS # 3.1 10^3/uL (1.5-8.5); NEUTROPHILS % 46.7 % (36.0-66.0); PLATELET COUNT, AUTOMATED 253 10^3/uL (150-450)
[2024-11-28 13:40] LABS: ALT/SGPT 18 U/L (7.0-40); AST/SGOT 16 U/L (<34); CALCIUM LEVEL 8.5 MG/DL (8.5-10.1); CARBON DIOXIDE LEVEL 26 MMOL/L (20-31); CHLORIDE LEVEL 109 MMOL/L (98-107); CHOLESTEROL LEVEL 213 MG/DL (<200); CHOLESTEROL RISK RATIO 4.13 (<5); CREATININE FOR GFR 0.65 MG/DL (0.55-1.30); FREE T4 1.40 NG/DL (0.89-1.76); GLOMERULAR FILTRATION RATE > 90.0 (>51); LDL CHOLESTEROL 135.7 MG/DL (<100); MAGNESIUM LEVEL 2.1 MG/DL (1.8-2.4); NON-HDL-C 161.5 MG/DL; POTASSIUM SERUM 4.3 MMOL/L (3.5-5.1); SODIUM LEVEL 144 MMOL/L (136-145); TRIGLYCERIDES LEVEL 129 MG/DL (<150)
[2024-11-28 13:44] LABS: ESTIMATED AVERAGE GLUCOSE 117.0 MG/DL (60-110)
== END ==
LOC: M WUC 08:32
PROVIDERS: ATTEND Physician Assistant
DX: R00.2 Palpitations (principal); E78.1 Pure hyperglyceridemia; E03.9 Hypothyroidism, unspecified; E21.3 Hyperparathyroidism, unspecified; Z68.38 Body mass index [BMI] 38.0-38.9, adult

== ENCOUNTER → 2025-01-03 | Outpatient (CLI) | payer OTHER | LOC: M PLAIMG 08:02 | PROVIDERS: ATTEND Physician Assistant | DX: M25.561 Pain in right knee (principal); S83.241A Other tear of medial meniscus, current injury, right knee, initial encounter; Y99.9 Unspecified external cause status; Y92.009 Unspecified place in unspecified non-institutional (private) residence as the place of occurrence of the external cause; Y93.9 Activity, unspecified ==